=== PATIENT | female | born 1985 | race Caucasian/White ===

== ENCOUNTER 2019-04-10 18:10 | Emergency (ER) | payer OTHER ==
[2019-04-10 18:38] VITALS: BP 124/79
--- NOTE | 2019-04-10 19:03 | UC ---
Shoulder Pain HPI - HPI Summary HPI Summary: 33-year-old female presents with complaints of right shoulder pain. States the pain woke her from her sleep last night. States it is a constant throbbing pain in her anterior shoulder that worsens with movement especially external rotation and abduction. Denies alleviating factors. Patient states she gets some intermittent numbness in her radial forearm when she tries to lift her arm upwards. 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 Denies injury, fever, chills, weakness of the arm, chest pain, palpitations, diaphoresis, shortness of breath, abdominal pain, nausea, or vomiting. - History of Current Complaint Chief Complaint: UCUpperExtremity Stated Complaint: WC-RT SHOULDER INJURY Time Seen by Provider: 04/10/19 18:53 Hx Obtained From: Patient Hx Last Menstrual Period: 04/02/19 Pain Intensity: 10 - Allergies/Home Medications Allergies/Adverse Reactions: Allergies Allergy/AdvReac Type Severity Reaction Status Date / Time azithromycin Allergy Difficulty Verified 04/10/19 18:39 Breathing PMH/Surg Hx/FS Hx/Imm Hx Previously Healthy: Yes - Denies significant PMH - Surgical History Surgical History: Yes Surgery Procedure, Year, and Place: endoscopy to remove abdominal adhesions 2013 - Social History Occupation: Employed Full-time Lives: With Family Alcohol Use: Occasionally Substance Use Type: None Smoking Status (MU): Current Some Day Smoker Amount Used/How Often: 1-2 cigs/day Review of Systems All Other Systems Reviewed And Are Negative: Yes Constitutional: Negative: Fever, Chills Skin: Negative: Rash, Bruising Respiratory: Negative: Shortness Of Breath Cardiovascular: Negative: Palpitations, Chest Pain Gastrointestinal: Negative: Abdominal Pain, Vomiting, Nausea Genitourinary: Positive: Negative Musculoskeletal: Positive: Other: - See HPI Neurological: Positive: Negative Is Patient Immunocompromised?: No Physical Exam - Summary Physical Exam Summary: GENERAL APPEARANCE: Well developed, well nourished, alert and cooperative, and appears to be in no acute distress. NECK: Neck supple, non-tender. CARDIAC: Normal S1 and S2. No S3, S4 or murmurs. Rhythm is regular. There is no peripheral edema, cyanosis or pallor. Extremities are warm and well perfused. Capillary refill is less than 2 seconds. Peripheral pulses intact. LUNGS: Clear to auscultation without rales, rhonchi, wheezing or diminished breath sounds. ABDOMEN: Positive bowel sounds. Soft, nondistended, nontender. No guarding or rebound. No masses or hepatosplenomegally. MUSKULOSKELETAL: Normal muscular development. Normal gait. EXTREMITIES: Point tenderness over the subacromial bursa. No gross deformity, ecchymosis, erythema, or lesions. Limited abduction and external rotation due to pain. Circulation and sensation intact. SKIN: Skin normal color, texture and turgor with no lesions or eruptions. Triage Information Reviewed: Yes Vital Signs: Initial Vital Signs Temp 99.2 F 04/10/19 18:33 Pulse 73 04/10/19 18:33 Resp 18 04/10/19 18:33 BP 124/79 04/10/19 18:33 Pulse Ox 100 04/10/19 18:33 Vital Signs Reviewed: Yes Diagnostics - Radiology No standard instances Radiology Interpretation Completed By: ED Physician - No acute osseous pathology Shoulder Course/Dx - Course Course Of Treatment: 33-year-old female presents with complaints of right shoulder pain. States the pain woke her from her sleep last night. States it is a constant throbbing pain in her anterior shoulder that worsens with movement especially external rotation and abduction. Denies alleviating factors. Patient states she gets some intermittent numbness in her radial forearm when she tries to lift her arm upwards. 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 Denies injury, fever, chills, weakness of the arm, chest pain, palpitations, diaphoresis, shortness of breath, abdominal pain, nausea, or vomiting. Afebrile. Vital signs stable. Patient had point tenderness over the subacromial bursa. No gross deformity, ecchymosis , erythema, or lesions. Limited abduction and external rotation due to pain. Circulation and sensation intact. Remainder of exam was unremarkable. She was given naproxen 500 mg PO for pain. Preliminary reading of shoulder x-ray showed no acute osseous pathology. Recommending conservative treatment for acute right shoulder pain likely from a subacromial bursitis with naproxen 500 mg 1 tablet or 12 hours 5 days then every 12 hours as needed as well as RICE. I did demonstrate gentle range of motion exercises that she is to perform every 2 hours while awake to help prevent frozen shoulder. She is to follow-up with orthopedic surgery in 5-7 days if symptoms are not improving. Anticipatory guidance and warning symptoms were reviewed with the patient. Verbalizes understanding of the plan of care. - Differential Dx/Diagnosis Differential Diagnosis/HQI/PQRI: Bursitis, Rotator Cuff Injury, Sprain, Strain, Thoracic Outlet Syndrome Provider Diagnosis: Right anterior shoulder pain Discharge - Sign-Out/Discharge Documenting (check all that apply): Patient Departure All imaging exams completed and their final reports reviewed: No - Discharge Plan Condition: Stable Disposition: HOME Prescriptions: Naproxen [Naproxen 500 mg tab] 500 mg PO BID #30 tablet Patient Education Materials: Shoulder Pain (ED) Referrals: Sarah Proctor DO [Primary Care Provider] - Alli Girard MD [Medical Doctor] - 5 Days Additional Instructions: The x-ray performed in the clinic today showed no evidence of a fracture. I suspect that your pain may be from some inflammation of the subacromial bursa. The x-ray will be reviewed by the radiologist tomorrow and we will notify you if they see anything that changes her plan of care. Rest the shoulder as much as possible. You should avoid strenuous activity and heavy lifting until pain free. It is important however that you perform the gentle range of motion exercises that were demonstrated to you every couple of hours while awake to avoid developing a frozen shoulder. Apply ice to the affected area for 15-20 minutes at least 4 times a day to help with the pain and swelling. Take naproxen 500 mg every 12 hours with food for the next 5 days then may take every 12 hours as needed for pain. You were given a dose of this medication in the clinic at 7:30 pm. Follow up with orthopedic surgery in 5-7 days if symptoms do not improve. Seek immediate medical attention if you have severe pain not managed with pain medication, you lose function of the arm, develop persistent numbness or tingling in the arm, hand, or fingers, or have any worsening of symptoms. - Billing Disposition and Condition Condition: STABLE Disposition: Home - Attestation Statements Provider Attestation: I was available for consult. This patient was seen by the [facility]. The patient was not presented to, seen by, or examined by me. Victorino Gomez MD
[2019-04-10] MEDS ORDERED: Naproxen TAB* 250 MG PO ONE (19:20)
== END 2019-04-10 20:06 | disposition home or self-care (01) ==
LOC: UCCORT 18:10
DX: M25.511 Pain in right shoulder (principal); F17.200 Nicotine dependence, unspecified, uncomplicated
CPT/HCPCS: 99202; A9270-GY; G0463

== ENCOUNTER 2019-09-22 12:56 | Emergency (ER) | payer OTHER ==
[2019-09-22 13:24] VITALS: BP 118/84
--- NOTE | 2019-09-22 13:26 | UC ---
Skin Complaint HPI - HPI Summary HPI Summary: 33 y/o female presents to the urgent care c/o itchy rash under both armpits since before the new year. She has not been using any deodorant and shaved her armpits to alleviate symptoms and it made it worse. Pt reports rash started first on the upper back and neck w/ URI symptoms after [place], but it resolved and then she noticed it on her arm pits. She has been scratching and it has become painful at times. Pt has not applied or taken anything to alleviate symptoms. 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 Pt denies eating something, new, using a new deodorant, or body lotion or new detergent. She is unsure of what might have cause it. Pt states pain is 2/10 at touch. Pt denies swelling or drainage, fever , SOB, difficulty swallowing chest pain, wheezing, abdominal pain, N/V/D. or Hx of MRSA. - History of Current Complaint Chief Complaint: UCSkin Time Seen by Provider: 09/22/19 13:25 Stated Complaint: SKIN ARMPITS Hx Obtained From: Patient Hx Last Menstrual Period: 09/18/2019 ?: No Onset/Duration: Gradual Onset, Lasting Days - 13 days, Still Present, Worse Since - 2 days Skin Exposure Onset/Duration: Days Ago - 13 days Timing: Constant Current Severity: Mild Pain Intensity: 4 Pain Scale Used: 0-10 Numeric Location: Discrete - B/l axillas w/ itchy red rash Character: Pruritus, Redness Aggravating Factor(s): Touch Alleviating Factor(s): Nothing Associated Signs & Symptoms: Positive: Rash - B/l axillas w/ itchy red rash, Tenderness. Negative: Difficulty Breathing, Fever, Chills, Cough, Wheezing, Hoarseness, Throat Tightening Related History: Other: - unknown sourse - Allergy/Home Medications Allergies/Adverse Reactions: Allergies Allergy/AdvReac Type Severity Reaction Status Date / Time azithromycin Allergy Difficulty Verified 04/10/19 18:39 Breathing bee pollen Allergy Airway Verified 09/22/19 13:14 Obstruction Home Medications: Home Medications Cannabidiol (Cbd) Extract [Epidiolex] 600 mg PO DAILY 09/22/19 [History Confirmed 09/22/19] Folic Acid TAB* [Folvite TAB*] 1 tab PO DAILY 09/22/19 [History Confirmed ] Multivitamin [Once Daily] 1 tab PO DAILY 09/22/19 [History Confirmed 09/22/19] Vitamin B Complex CAP* [B Complex CAP*] 1 cap PO DAILY 09/22/19 [History Confirmed 09/22/19] PMH/Surg Hx/FS Hx/Imm Hx Previously Healthy: Yes Other GI/ History: Endometriosis, PCOS - Surgical History Surgical History: Yes Surgery Procedure, Year, and Place: endoscopy to remove abdominal adhesions 2013 - Family History Known Family History: Positive: Unknown - Pt is adopted - Social History Occupation: Employed Full-time Lives: With Family Alcohol Use: Occasionally Substance Use Type: None Smoking Status (MU): Current Some Day Smoker Type: Cigarettes Amount Used/How Often: 1-2 cigs/day Review of Systems All Other Systems Reviewed And Are Negative: Yes Constitutional: Positive: Negative Skin: Positive: Rash - B/l axillas w/ itchy red rash Eyes: Positive: Negative ENT: Positive: Negative Respiratory: Positive: Negative Cardiovascular: Positive: Negative Gastrointestinal: Positive: Negative Genitourinary: Positive: Negative Motor: Positive: Negative Neurovascular: Positive: Negative Musculoskeletal: Positive: Negative Neurological: Positive: Negative Psychological: Positive: Negative Is Patient Immunocompromised?: No Physical Exam - Summary Physical Exam Summary: Vital Signs Reviewed: Yes General: well appearing, well nourished female in no acute apparent pain distress, sitting comfortably on examining table Eye Exam: Normal Eyes: Positive: Conjunctiva Clear - PERRLA< EOMI, fundi grossly normal ENT: Positive: Normal ENT inspection, Hearing grossly normal, Pharynx normal, TMs normal Neck: Positive: Supple, Nontender, No Lymphadenopathy Respiratory: Positive: Chest non-tender, Lungs clear, Normal breath sounds, No respiratory distress Cardiovascular: Positive: RRR, No Murmur, Pulses Normal, Brisk Capillary Refill Abdomen Description: Positive: Nontender, No Organomegaly, Soft. Negative: CVA Tenderness (R), CVA Tenderness (L) Bowel Sounds: Positive: Present Musculoskeletal: Positive: Strength Intact, ROM Intact, No Edema Neurological: Positive: Alert, Muscle Tone Normal Psychological Exam: Normal Skin: B/L axillas w/ scattered discrete maculopapular erythematous eruption, no blisters or vesicles, no abscess, some scattered signs of excoriation, no drainage observed, non tender to palpation. Triage Information Reviewed: Yes Vital Signs: Initial Vital Signs Temp 97.1 F 09/22/19 13:18 Pulse 65 09/22/19 13:18 Resp 20 09/22/19 13:18 BP 118/84 09/22/19 13:18 Pulse Ox 100 09/22/19 13:18 Course/Dx - Course Course Of Treatment: 33 y/o female presents to the urgent care c/o itchy rash under both armpits since before the new year. She has not been using any deodorant and shaved her armpits to alleviate symptoms and it made it worse. Pt reports rash started first on the upper back and neck w/ URI symptoms after [place], but it resolved and then she noticed it on her arm pits. She has been scratching and it has become painful at times. Pt has not applied or taken anything to alleviate symptoms. 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 Pt denies eating something, new, using a new deodorant, or body lotion or new detergent. She is unsure of what might have cause it. Pt states pain is 2/10 at touch. Pt denies swelling or drainage, fever , SOB, difficulty swallowing chest pain, wheezing, abdominal pain, N/V/D. or Hx of MRSA. Hx obtained.Pt w/ a contact dermatitis on B/L axilla on examination. Pt RX Prednisone PO taper dose, triamcinolone topical cream as directed below to alleviate symptoms. Advised if not improvment of symptoms to f/u w/ [employer] or her PCP in 3 days for further management. D/C instructions explained. Pt understood and agreed w/ plan of care and left the clinic ambulating and hemodynamically stable. - Differential Diagnoses - Skin Complaint Differential Diagnoses: Abscess, Cellulitis, Contact Dermatitis, Local Allergic Reaction, MRSA, Urticaria - Diagnoses Provider Diagnosis: Contact dermatitis Discharge ED - Sign-Out/Discharge Documenting (check all that apply): Patient Departure - d/c home All imaging exams completed and their final reports reviewed: No Studies - Discharge Plan Condition: Stable Disposition: HOME Prescriptions: predniSONE 20 mg TAB [Deltasone 20 MG TAB*] 20 mg PO DAILY #11 tab Triamcinolone 0.1% CREAM (NF) [Kenalog 0.1% Cream (NF)] 1 applic TOPICAL BID #1 tube Patient Education Materials: Contact Dermatitis (ED) Referrals: Shira Sellers NP [Primary Care Provider] - 3 Days Sabine Xie [Medical Doctor] - If Needed Additional Instructions: 1-Please Start taking Prednisone PO taper dose as directed 2- Continue taking Benadryl PO to alleviate itchiness. Apply Triamcinolone topical cream as directed. Avoid exposure to the sun. do not use any deodorant 3-If symptoms do not improve or worsen please f/u with your PCP or [employer] in 3 days for further evaluation and treatment. - Billing Disposition and Condition Condition: STABLE Disposition: Home - Attestation Statements Provider Attestation: This patient was not seen by me. I was available for consult. Chart reviewed. MAN
[2019-09-22 20:22] LABS: HIV 4th Generation Nonreactive (Nonreactive)
== END 2019-09-22 13:58 | disposition home or self-care (01) ==
LOC: UCCORT 12:56
DX: L25.9 Unspecified contact dermatitis, unspecified cause (principal); F17.210 Nicotine dependence, cigarettes, uncomplicated; E28.2 Polycystic ovarian syndrome; Z88.1 Allergy status to other antibiotic agents; Z91.030 Bee allergy status
CPT/HCPCS: 36415; 87389; 99212; G0463